=== PATIENT | female | born 1965 | race Caucasian/White ===

== ENCOUNTER 2021-09-18 06:15 | Day surgery (SDC) | payer BC ==
[~2021-09-18] VITALS: Ht 48.3 cm; Wt 72.0 kg
[~2021-09-18 06:15] MED LIST: BUPROPION XL450 MG PO
[2021-09-18] MEDS ORDERED: ZYRTEC10 MG PO (06:42)
--- NOTE | 2021-09-18 07:52 | NUR ---
09/18/21 0752 Ashley Manzo 0716 PATIENT ARRIVES TO PACU RESTING WITH EYES CLOSED. OPENS EYES WITH VERBAL STIMULI, BACK TO SLEEP WHEN NOT STIMULATED. RESP EVEN AND UNLABORED, ROOM AIR SATS >94%.
--- NOTE | 2021-09-18 10:07 | OR ---
[facility] [address], [place] [address] Signed DATE OF OPERATION: 09/18/2021 SURGEON: Bekah Robertson MD PREOPERATIVE DIAGNOSIS: Screening. POSTOPERATIVE DIAGNOSES: 1. 4 mm polyp at distal right colon. 2. Internal anal skin tags x3 (minimal to moderate). PROCEDURE: Colonoscopy with hot biopsy. ESTIMATED BLOOD LOSS: None. INDICATIONS: Angelina is a 55-year-old female asked to see me for her initial screening colonoscopy. She has no lower GI complaints. There is no family history of colon cancer or polyps. I gave her a booklet on colonoscopy. She understands the nature of that test. There is risk including, but not limited to gas bloating, crampy abdominal pain, bleeding, perforation requiring surgery, and missed diagnosis. We also discussed the need for IV conscious sedation. She had expressed understanding and wished to proceed. PROCEDURE NOTE: Angelina was taken into our endoscopy suite and placed in the left lateral decubitus position. She was given a total of 7 mg of Versed and 150 mcg of fentanyl to cover the case. A digital rectal exam was performed and this was unremarkable. She had good sphincter tone. The adult colonoscope was introduced and advanced around into the cecum under direct visualization of camera. It took some extra sedation and abdominal compression in order to advance the scope. However, Angelina seemed to do quite well. Her prep was quite excellent. We could easily see the appendiceal orifice and the ileocecal valve. The scope was then slowly withdrawn. There was a tiny 4 mm polypoid lesion in the distal right colon headed into the hepatic flexure. It was easily removed and destroyed completely with the hot biopsy forceps. There was no diverticulosis. The rectum was unremarkable. Upon retroflexion of scope, she has at least three minimal to moderate-sized internal anal skin tags. Not much in the way of internal hemorrhoid columns. After this, the gas was suctioned out and colonoscope removed. Angelina tolerated the procedure quite well. Electronically Signed By: BEKAH ROBERTSON MD 09/18/21 1007 PATIENT NAME: ANGELINA DUKE OPERATIVE REPORT DATE OF : 67 REPORT #: [id number] PHYSICIAN: BEKAH ROBERTSON MD PCP: NO PRIMARY CARE PHYSICIAN REPORT IS CONFIDENTIAL AND NOT TO BE RELEASED WITHOUT AUTHORIZATION [address] [address] Signed RECOMMENDATIONS: I will see Angelina back in my office in 7 to 14 days to review her pathology results. Bekah Robertson MD ALB/MODL /[id number] cc: Bekah Robertson MD Copies: BEKAH ROBERTSON MD ~ Electronically Signed By: BEKAH ROBERTSON MD 09/18/21 1007 PATIENT NAME: ANGELINA DUKE OPERATIVE REPORT DATE OF : 67 REPORT #: [id number] PHYSICIAN: BEKAH ROBERTSON MD PCP: NO PRIMARY CARE PHYSICIAN REPORT IS CONFIDENTIAL AND NOT TO BE RELEASED WITHOUT AUTHORIZATION
--- NOTE | 2021-09-22 14:38 | PATH ---
[facility] [address] [place], [place] [address] Signed SPECIMEN(S): A DISTAL ASCENDING/RIGHT COLON POLYP SPECIMEN SOURCE: A. DISTAL ASCENDING/RIGHT COLON POLYP CLINICAL HISTORY: Pre: Screening colonoscopy. Post: Colon polyps int. and skin tags. MICROSCOPIC DESCRIPTION: Histologic sections of all submitted blocks are examined by light microscopy. These findings, together with the gross examination, support the pathologic diagnosis. FINAL PATHOLOGIC DIAGNOSIS: Colon, distal ascending/right, polypectomy: - Colonic mucosa with no significant pathologic changes. BRP:cml:C2NR GROSS DESCRIPTION: The specimen, labeled "RM, 1," and designated on the requisition "ascending/right distal polypectomy," is received in formalin and consists of one fragment of pink-hernandez tissue (0.2 cm in greatest dimension). The specimen is submitted entirely in cassette (A1). AC (under the direct supervision of a pathologist) The Gross Description was prepared using a voice recognition system. The report was reviewed for accuracy; however, sound-alike word errors, addition and/or deletions may occur. If there is any question about this report, please contact Client Services. PERFORMING LABORATORY: The technical component was performed by [facility], [address] [place] [id number] (Fire Hazard Inspector: Emily Thomson MD; CLIA# [id number]). Professional interpretation was performed by [facility], [facility], [address] [address] (CLIA# [id number]). Diagnostician: Nelson Ortiz MD Pathologist Electronically Signed 09/22/2021 Copies: PATIENT NAME: JOHANA DUKE PATHOLOGY DATE OF : 67 REPORT #: [id number] PHYSICIAN: [facility] PATH[facility] PCP: NO PRIMARY CARE PHYSICIAN REPORT IS CONFIDENTIAL AND NOT TO BE RELEASED WITHOUT AUTHORIZATION [address] [address] Signed ~ PATIENT NAME: JOHANA DUKE PATHOLOGY DATE OF : 67 REPORT #: [id number] PHYSICIAN: DONATO PATHOLOGY PCP: NO PRIMARY CARE PHYSICIAN REPORT IS CONFIDENTIAL AND NOT TO BE RELEASED WITHOUT AUTHORIZATION
== END 2021-09-18 08:30 | disposition home or self-care (01) ==
LOC: OPS 06:15 → DS 06:15 → OPS 07:30
PROVIDERS: ATTEND Colon & Rectal Surgery
PROC: 0DBM8ZX Excision of Descending Colon, Via Natural or Artificial Opening Endoscopic, Diagnostic (ICD-10-PCS; principal; 2021-09-18 07:30)
DX: Z12.11 Encounter for screening for malignant neoplasm of colon (principal); K63.5 Polyp of colon; K64.4 Residual hemorrhoidal skin tags; Z88.8 Allergy status to other drugs, medicaments and biological substances
CPT/HCPCS: 99153; G0500; J2250; J3010; J7121